=== PATIENT | male | born 1940 | race American Indian/Alaskan Native ===

== ENCOUNTER 2016-12-26 06:32 | Emergency (ER) | payer MEDICARE ==
[2016-12-26] MEDS ORDERED: ATIVAN IV ONE (07:22)
--- NOTE | 2016-12-26 07:24 | Emergency Department Report ---
HPI - General Chief Complaint: Seizure Time Seen by Provider: 12/26/16 07:14 - HPI HPI: This is a 76-year-old -[place] male who presents to the emergency department from home with complaint of some intermittent shaking and/or convulsions that has been going on since last night. The patient has a history of these type of seizures since 1999. He says that he ran out of his medication about one year ago but cannot remember what the medication is and just says that it was a "little blue pill." He goes to [facility] for primary care but does not have any neurology. He denies any chest pain, shortness of breath, headache, vision change, slurred speech. He says that usually these shaking or convulsions come on when he does not get enough sleep. He tried drinking some wine last night in order to help him fall asleep but it did not help. He has a past history of diabetes, hypertension, along with these seizures. No recent travel or sick contacts at home. ED Past Medical Hx - Past Medical History Previous Medical History?: Yes Hx Hypertension: Yes Hx Diabetes: Yes Hx Seizures: Yes Additional medical history: hernia - Surgical History Past Surgical History?: No - Social History Smoking Status: Former Smoker Substance Use Type: Alcohol - Medications Home Medications: Home Medications Medication Instructions Recorded Confirmed Last Taken Type Carbidopa/Levodopa 25-100 [Sinemet] 1 each PO BID #60 tablet 12/26/16 Unknown Rx ED Review of Systems ROS: Stated complaint: SEIZURE Other details as noted in HPI Comment: All other systems reviewed and negative Constitutional: denies: chills, fever Eyes: denies: eye pain, eye discharge, vision change ENT: denies: ear pain, throat pain Respiratory: denies: cough, shortness of breath, wheezing Cardiovascular: denies: chest pain, palpitations Genitourinary: denies: urgency, dysuria Musculoskeletal: denies: back pain, joint swelling, arthralgia Skin: denies: rash, lesions Neurological: other (involuntary contractions/convulsions/seizures). denies: headache Physical Exam - Physical Exam Vital Signs: Vital Signs 12/26/16 12/26/16 06:40 07:09 Temperature 98.5 F Pulse Rate 96 H Respiratory 18 16 Rate Blood Pressure 172/91 O2 Sat by Pulse 99 96 Oximetry Physical Exam: GENERAL: The patient is well-developed well-nourished. HEENT: Normocephalic. Atraumatic. Extraocular motions are intact. Patient has moist mucous membranes. Pupils equal reactive to light bilaterally. No nystagmus. NECK: Supple. Trachea is midline. CHEST/LUNGS: Clear to auscultation. There is no respiratory distress noted. HEART/CARDIOVASCULAR: Regular. There is no tachycardia. There is no gallop rub or murmur. ABDOMEN: Abdomen is soft, nontender. Patient has normal bowel sounds. There is no abdominal distention. SKIN: Skin is warm and dry. NEURO: The patient is awake, alert, and oriented. The patient is cooperative. The patient will do some type of involuntary upper extremity tremor or convulsion about every 10-15 seconds. It appears to be improved when there is some type of intention or task at hand. The patient has normal speech. No facial asymmetry. No pronator drift. No dysmetria. MUSCULOSKELETAL: There is no tenderness or deformity. There is no limitation range of motion. There is no evidence of acute injury. Muscle strength 5 out of 5 for upper and lower extremity bilaterally. ED Course Vital Signs 12/26/16 12/26/16 06:40 07:09 Temperature 98.5 F Pulse Rate 96 H Respiratory 18 16 Rate Blood Pressure 172/91 O2 Sat by Pulse 99 96 Oximetry - Consultations Consultation #1: I had spoken to the telemedicine neurologist, Dr. Ozuna, who agreed to see the patient in the emergency department via telemedicine robot. He then called back and agrees that it does not appear to be a seizure and he suggests that it is more of a movement disorder or dyskinesia. He recommends trying 1 mg of Haldol. 12/26/16 15:17 Consultation #2: I spoke with Dr. Bonds who says that he has agreed to follow the patient outpatient and that they should call to make an appointment in the near future. He recommends giving Sinemet 20-100 twice a day 12/26/16 15:19 ED Medical Decision Making - Lab Data Result diagrams: 12/26/16 07:33 12/26/16 07:33 - EKG Data -: EKG Interpreted by Me EKG shows normal: sinus rhythm, axis (LAD), intervals, QRS complexes, ST-T waves Rate: normal - EKG Data When compared to previous EKG there are: previous EKG unavailable Interpretation: normal EKG - Radiology Data Radiology results: report reviewed CT of the head does not show any acute process including no hemorrhage, mass, shift, diffuse edema or skull fracture. - Medical Decision Making 76-year-old male presents to the emergency department with what he says are some small and recurrent seizures. However the patient remains awake and alert during these episodes and they come very often and last for a very short time. He had a CBC, metabolic panel and TSH. The only lab abnormality was some renal insufficiency and none of this shows any etiology of the patient's symptoms. A CT of the head without contrast was done that does not show any acute process. He was given a dose of Ativan in case it was some type of atypical seizure and it helped for a short amount of time and the fact that it made him sleepy and when he is sleeping and does not appear to have this involuntary movement. He was seen by the telemedicine neurologist who agreed that it was more of a movement disorder and/or dyskinesia. He recommended some Haldol and the 1 mg dose was given. Once again the patient became sleepy and therefore stopped having the movement disorder but once he is awake and does return. While patient does have this dyskinesia, otherwise the patient does not appear to be in any acute distress. He has no complaint of any discomfort, he is awake and lucid. He does not appear to require inpatient admission at this time. However he has been set up to follow-up in the next few days with neurology and has been started on Sinemet at their recommendation. He will return to the ER with any worsening of symptoms, any neurological deficits or strokelike symptoms , or any acute distress. - Differential Diagnosis seizure, CVA, Parkinson's Critical Care Time: No Critical care attestation.: If time is entered above; I have spent that time in minutes in the direct care of this critically ill patient, excluding procedure time. ED Disposition Clinical Impression: Movement disorder, Dyskinesia, Renal insufficiency Disposition: DC-01 TO HOME OR SELFCARE Is pt being admited?: No Condition: Stable Instructions: Impaired Kidney Function (ED) Additional Instructions: You were seen today for involuntary spasms and/or convulsions. This appears consistent with something called dyskinesia. We are unable to find out the etiology of this but it is imperative that he follow up with a neurologist. Return to the emergency department sooner with any worsening of her symptoms, inability to ambulate, slurred speech, vision change, chest pain, shortness of breath, or any acute distress. Prescriptions: Carbidopa/Levodopa 25-100 [Sinemet] 1 each PO BID #60 tablet Referrals: PRIMARY CARE, [Primary Care Provider] - 3-5 Days TORRIE DAVISON MD [Staff Physician] - 3-5 Days
[2016-12-26 07:57] LABS: Basophils % (Auto) 1.1 % (0.0-1.8); Eosinophils % (Auto) 3.6 % (0.0-4.3); Hematocrit 39.6 % (35.5-45.6); Hemoglobin 13.1 gm/dl (11.8-15.2); Mean Corpuscular HGB Conc 33 % (32-34); Mean Corpuscular Hemoglobin 28 pg (28-32); Mean Corpuscular Volume 84 fl (84-94); Platelet Count 162 K/mm3 (140-440); Red Blood Count 4.69 M/mm3 (3.65-5.03); Red Cell Distribution Width 14.8 % (13.2-15.2); White Blood Count 6.5 K/mm3 (4.5-11.0)
[2016-12-26 08:06] LABS: Albumin 3.9 g/dL (3.9-5); Albumin/Globulin Ratio 1.1 %; BUN/Creatinine Ratio 12.38; Bilirubin,Total 0.3 mg/dL (0.1-1.2); Calcium 9.1 mg/dL (8.4-10.2); Chloride 104.6 mmol/L (98-107); Potassium 4.1 mmol/L (3.6-5.0); Total Protein 7.5 g/dL (6.3-8.2)
--- NOTE | 2016-12-26 09:57 | Cat Scan Report ---
CT HEAD WITHOUT CONTRAST INDICATION: Seizures. COMPARISON: Report of October 2010 CT and MRI; images not retrievable at this time. FINDINGS: Noncontrast head CT demonstrates age-appropriate ventricles and sulci. [id number] periventricular and white matter hypodense small vessel ischemic disease. Few small lacunar infarcts as in the caudate nuclei noted measuring up to 3 mm. No definite acute infarct, hemorrhage, mass effect or midline shift. No abnormal extra axial fluid collections. Normal posterior fossa with preserved basilar cisterns. Left cataract surgery. Small bilateral maxillary sinus mucus retention cysts measure up to 0.9 cm on the right. Mild bilateral frontal and slight ethmoid and right sphenoid sinus mucosal thickening. Clear imaged mastoid air cells. Normal calvarium and scalp. Edentulous jaw. Mild left ICA atherosclerotic calcifications. Mild cervical spondylosis. CONCLUSION: No acute intracranial CT abnormality with age-appropriate atrophy, microvascular changes and sinus disease, as described. Please correlate. Thank you for the opportunity to participate in this patient's care.
[2016-12-26] MEDS ORDERED: HALDOL IV ONE (10:59)
[2016-12-26 14:38] VITALS: BP 145/82
== END 2016-12-26 13:55 | disposition home or self-care (01) ==
LOC: ED 06:32
DX: G25.9 Extrapyramidal and movement disorder, unspecified (principal); G24.9 Dystonia, unspecified; N28.9 Disorder of kidney and ureter, unspecified; I10 Essential (primary) hypertension; E11.9 Type 2 diabetes mellitus without complications; Z87.891 Personal history of nicotine dependence
CPT/HCPCS: 36415; 70450; 80053; 84443; 85025; 93005; 93010; 96374; 96375; 99284; J1630; J2060